=== PATIENT | female | born 1975 | race Caucasian/White ===

== ENCOUNTER 2017-07-11 01:05 | Inpatient (IN) | payer OTHER ==
[~2017-07-11] VITALS: Ht 175.3 cm; Wt 142.5 kg
[~2017-07-11 01:05] MED LIST: HCTZ PO
[2017-07-11 01:12] VITALS: Ht 175.3 cm; Wt 142.5 kg
[2017-07-11 02:47] LABS: BASOPHIL % 0.1 % (0-2); PLATELET COUNT 281 x10^3mcL (130-400); RED CELL DISTRIBUTION WIDTH 13.9 % (11.5-14.5)
[2017-07-11 02:57] LABS: CALCIUM 8.5 mg/dL (8.5-10.1); CARBON DIOXIDE 29.2 mmol/L (21-32); CREATININE SERUM 1.1 mg/dL (0.6-1.0); POTASSIUM SERUM 4.1 mmol/L (3.5-5.1)
[2017-07-11 02:58] LABS: microscopic required? YES; urine erythrocyte 1+ (NEGATIVE)
[2017-07-11 03:02] LABS: ALBUMIN 3.4 g/dL (3.4-5.0); BILIRUBIN TOTAL 1.6 mg/dL (0.20-1.00); TOTAL PROTEIN, SERUM 7.3 g/dL (6.4-8.2)
[2017-07-11] MEDS ORDERED: HYDROCHLOROTH12.5 M2 PO (03:39)
[2017-07-11] MEDS ORDERED: ZESTRIL20 MG PO (03:39)
[2017-07-11] MEDS ORDERED: CITALOPRAM HYDR20 M1 PO (03:40)
[2017-07-11 04:39] LABS: PHOSPHOROUS 3.5 mg/dL (2.5-4.9)
[2017-07-11 04:43] LABS: T3 TOTAL 0.9 ng/mL
[2017-07-11 05:00] VITALS: BP 126/77
[2017-07-11 05:01] LABS: FREE T4 1.18 ng/dL (0.76-1.46); FREE THYROXINE INDEX 3.5 ug/dL (1.4-4.5); T4(THYROXINE) 9.2 ug/dL (4.7-13.3)
[2017-07-11 05:11] VITALS: BP 130/77
[2017-07-11 09:31] LABS: AMPHETAMINE QUAL UR NONE DETECTED (NEG <=1000)
[2017-07-11 09:53] VITALS: BP 109/69
[2017-07-11 15:39] VITALS: BP 108/70
[2017-07-11 17:49] VITALS: BP 129/69
[2017-07-11 21:30] VITALS: BP 121/79
[2017-07-12 05:53] VITALS: BP 128/64
[2017-07-12 07:35] LABS: BASOPHIL % 0.2 % (0-2); PLATELET COUNT 264 x10^3mcL (130-400); RED CELL DISTRIBUTION WIDTH 14.1 % (11.5-14.5)
[2017-07-12 08:08] LABS: CALCIUM 7.9 mg/dL (8.5-10.1); CARBON DIOXIDE 28.2 mmol/L (21-32); CHLORIDE SERUM 105 mmol/L (98-107); CREATININE SERUM 0.7 mg/dL (0.6-1.0); GFR1 > 60 mL/min; GLUCOSE SERUM 99 mg/dL (74-106); MAGNESIUM 2.2 mg/dL (1.8-2.4); PHOSPHOROUS 3.3 mg/dL (2.5-4.9); POTASSIUM SERUM 3.9 mmol/L (3.5-5.1); SODIUM SERUM 140 mmol/L (136-145)
[2017-07-12 08:18] LABS: AMYLASE 290 U/L (25-115)
[2017-07-12 08:37] LABS: LIPASE 3348 IU/L (73-393)
[2017-07-12 08:39] LABS: BILIRUBIN DIRECT 0.24 mg/dL (0.0-0.2); BILIRUBIN TOTAL 0.74 mg/dL (0.20-1.00); TOTAL PROTEIN, SERUM 6.4 g/dL (6.4-8.2)
[2017-07-12 08:43] LABS: ALBUMIN 2.9 g/dL (3.4-5.0)
[2017-07-12 09:52] VITALS: BP 107/59
[2017-07-12 17:19] VITALS: BP 102/47
[2017-07-12 21:07] VITALS: BP 101/50
[2017-07-13 05:27] VITALS: BP 98/55
[2017-07-13 09:54] VITALS: BP 111/39
[2017-07-13] MEDS ORDERED: DOCUSATE SODIU100 M1 PO (11:20)
[2017-07-13] MEDS ORDERED: GAS RELIEF 8080 MG PO (11:22)
[2017-07-13] MEDS ORDERED: APAP/HYDROCODON1 T11 PO (11:23)
[2017-07-13 13:05] VITALS: BP 111/39
[2017-07-13 15:32] LABS: BASOPHIL % 0.6 % (0-2); PLATELET COUNT 230 x10^3mcL (130-400); RED CELL DISTRIBUTION WIDTH 13.7 % (11.5-14.5)
== END 2017-07-13 16:17 | disposition home or self-care (01) | DRG 417 ==
LOC: ED 01:05 → DU 03:50 → MU 03:50 → DU 04:40 → MU 12:14
PROVIDERS: Emergency Medicine; Family Medicine; Surgery
PROC: BF131ZZ Fluoroscopy of Gallbladder and Bile Ducts using Low Osmolar Contrast (ICD-10-PCS; 2017-07-11)
PROC: 0FT44ZZ Resection of Gallbladder, Percutaneous Endoscopic Approach (ICD-10-PCS; principal; 2017-07-11 13:00)
DX: K81.0 Acute cholecystitis (principal); K85.10 Biliary acute pancreatitis without necrosis or infection; Z68.42 Body mass index [BMI] 45.0-49.9, adult; B17.9 Acute viral hepatitis, unspecified; E44.0 Moderate protein-calorie malnutrition; J45.909 Unspecified asthma, uncomplicated; I10 Essential (primary) hypertension; F17.210 Nicotine dependence, cigarettes, uncomplicated; R31.9 Hematuria, unspecified; E66.01 Morbid (severe) obesity due to excess calories; N20.0 Calculus of kidney
CPT/HCPCS: 83880; 84439; 94150; C1887; G0378; G0480; J0330; J0690; J1885; J2175; J2250; J2270; J2405; J2704; J2710; J3010; J3490; J7030; J7120; J7620; Q0092; Q9967